=== PATIENT | male | born 1970 | race Caucasian/White ===

== ENCOUNTER 2016-08-12 21:08 | Observation (INO) | payer BC ==
[~2016-08-12] VITALS: Ht 182.9 cm; Wt 87.6 kg
[2016-08-12 21:49] LABS: HEMOGLOBIN 17.6 gm/dl (14.0-17.5); RED BLOOD COUNT 5.69 M/UL (4.20-5.50); WHITE BLOOD COUNT 10.9 K/UL (4.5-11.0)
[2016-08-12 22:07] LABS: BUN/CREATININE RATIO 15 (0-10)
[2016-08-13 03:57] LABS: HEMOGLOBIN 17.1 gm/dl (14.0-17.5); RED BLOOD COUNT 5.58 M/UL (4.20-5.50); WHITE BLOOD COUNT 9.5 K/UL (4.5-11.0)
[2016-08-13 04:15] LABS: BUN/CREATININE RATIO 19 (0-10)
[2016-08-13] MEDS ORDERED: BAYER CHEWABLE81 MG PO (19:13)
[2016-08-13] MEDS ORDERED: NITROSTAT 0.40.4 MG SL (19:15)
[2016-08-13] MEDS ORDERED: TOPROL XL25 MG PO (19:15)
[2016-08-13] MEDS ORDERED: IMDUR ER TAB 3030 MG PO (19:16)
== END 2016-08-13 19:42 | disposition home or self-care (01) ==
LOC: ER1 21:08 → ZEROF 23:15 → M/S 23:15
PROVIDERS: Family Medicine; ADMIT Internal Medicine
DX: I25.9 Chronic ischemic heart disease, unspecified (principal); I51.7 Cardiomegaly; I10 Essential (primary) hypertension; K21.9 Gastro-esophageal reflux disease without esophagitis; F17.210 Nicotine dependence, cigarettes, uncomplicated; Z82.49 Family history of ischemic heart disease and other diseases of the circulatory system; Z79.82 Long term (current) use of aspirin; Z79.899 Other long term (current) drug therapy
CPT/HCPCS: ECHO; 36415; 71010; 78452; 80048; 80053; 80061; 82550; 82553; 83874; 84443; 84484; 85025; 85379; 93005; 93017; 93306; 96372; 99285; A9502; G0378; J1650; J7030

== ENCOUNTER 2016-08-25 15:33 | Inpatient (IN) | payer BC ==
[~2016-08-25] VITALS: Ht 182.9 cm; Wt 90.7 kg
[~2016-08-25 15:33] MED LIST: BAYER CHEWABLE81 MG PO; IMDUR ER TAB 3030 MG PO; NITROSTAT 0.40.4 MG SL; TOPROL XL25 MG PO
[2016-08-25 16:57] LABS: HEMOGLOBIN 16.4 gm/dl (14.0-17.5); RED BLOOD COUNT 5.36 M/UL (4.20-5.50); WHITE BLOOD COUNT 12.1 K/UL (4.5-11.0)
[2016-08-25 17:18] LABS: BUN/CREATININE RATIO 16 (0-10)
[2016-08-26 06:16] LABS: HEMOGLOBIN 16.3 gm/dl (14.0-17.5); RED BLOOD COUNT 5.45 M/UL (4.20-5.50); WHITE BLOOD COUNT 14.3 K/UL (4.5-11.0)
[2016-08-26 06:45] LABS: BUN/CREATININE RATIO 14 (0-10)
[2016-08-27 03:40] LABS: HEMOGLOBIN 16.5 gm/dl (14.0-17.5); RED BLOOD COUNT 5.5 M/UL (4.20-5.50); WHITE BLOOD COUNT 11.3 K/UL (4.5-11.0)
[2016-08-27 04:09] LABS: BUN/CREATININE RATIO 17 (0-10)
[2016-08-27] MEDS ORDERED: LIPITOR TAB 1010 MG PO (12:52)
[2016-08-27] MEDS ORDERED: LISINOPRIL5 MG PO (12:52)
[2016-08-27] MEDS ORDERED: BRILINTA90 MG PO (12:55)
[2016-08-27] MEDS ORDERED: TYLENOL 325MG325 MG PO (12:56)
[2016-08-27] MEDS ORDERED: HABITROL 21 MG P1 EA TD (12:57)
== END 2016-08-27 12:20 | disposition home or self-care (01) | DRG 247 ==
LOC: ER1 15:33 → PROG CARE 17:55 → ZEROF 17:55 → PROG CARE 22:35
PROVIDERS: Internal Medicine Cardiovascular Disease; Physician Assistant; ADMIT Internal Medicine Infectious Disease
PROC: 027135Z Dilation of Coronary Artery, Two Arteries with Two Drug-eluting Intraluminal Devices, Percutaneous Approach (ICD-10-PCS; principal; 2016-08-26)
PROC: 02C03ZZ Extirpation of Matter from Coronary Artery, One Artery, Percutaneous Approach (ICD-10-PCS; 2016-08-26)
PROC: 4A023N7 Measurement of Cardiac Sampling and Pressure, Left Heart, Percutaneous Approach (ICD-10-PCS; 2016-08-26)
PROC: B2111ZZ Fluoroscopy of Multiple Coronary Arteries using Low Osmolar Contrast (ICD-10-PCS; 2016-08-26)
DX: I21.4 Non-ST elevation (NSTEMI) myocardial infarction (principal); I25.10 Atherosclerotic heart disease of native coronary artery without angina pectoris; I25.83 Coronary atherosclerosis due to lipid rich plaque; I10 Essential (primary) hypertension; E78.5 Hyperlipidemia, unspecified; D72.829 Elevated white blood cell count, unspecified; K21.9 Gastro-esophageal reflux disease without esophagitis; F17.200 Nicotine dependence, unspecified, uncomplicated; Z72.3 Lack of physical exercise; Z79.82 Long term (current) use of aspirin; Z79.899 Other long term (current) drug therapy; Z90.49 Acquired absence of other specified parts of digestive tract; Z98.890 Other specified postprocedural states
CPT/HCPCS: 36415; 71010; 80048; 80053; 80061; 82550; 82553; 83874; 84484; 85025; 85027; 85347; 85610; 85730; 93005; 96372; 99285; C1725; C1757; C1769; C1874; C1887; C9600; C9601; J0461; J0583; J1644; J1650; J2250; J3010; J7030; Q9963

== ENCOUNTER → 2020-09-01 | Outpatient (CLI) | payer OTHER ==
[~2020-09-01] MED LIST changes: +BREO ELLIPTA 21 EACH INH; +BRILINTA90 MG PO; +HABITROL 21 MG P1 EA TD; +IMDUR ER TAB 6060 MG PO; +LEVAQUIN750 MG PO; +LIPITOR TAB 1010 MG PO; +PRINIVIL20 MG PO; +PROAIR HFA8.5 GM INH; +TYLENOL 325MG325 MG PO; +VITAMIN B-121000 MCG PO; +VITAMIN D 11000 UNIT PO; +WELLBUTRIN SR150 M1 PO
== END ==
LOC: EXRD 08-28 13:30
DX: I73.9 Peripheral vascular disease, unspecified (principal)
CPT/HCPCS: 93922; 93925

== ENCOUNTER → 2020-09-22 | Outpatient (CLI) | payer OTHER | LOC: CT 07:44 | DX: I73.9 Peripheral vascular disease, unspecified (principal); I77.1 Stricture of artery; I74.5 Embolism and thrombosis of iliac artery | CPT/HCPCS: 36415; 75635; 82565; Q9967 ==

== ENCOUNTER 2020-10-12 13:13 | Emergency (ER) | payer SELFPAY ==
[~2020-10-12] VITALS: Ht 180.3 cm; Wt 94.8 kg
[2020-10-12 14:45] LABS: HEMOGLOBIN 17.5 gm/dl (14.0-17.5); RED BLOOD COUNT 5.63 M/UL (4.20-5.50); WHITE BLOOD COUNT 9.9 K/UL (4.5-11.0)
[2020-10-12 15:07] LABS: BUN/CREATININE RATIO 18 (0-10)
== END 2020-10-12 20:43 | disposition home or self-care (01) ==
LOC: ER1 13:13
PROVIDERS: Emergency Medicine
DX: M54.5 Low back pain (principal); I25.10 Atherosclerotic heart disease of native coronary artery without angina pectoris; I10 Essential (primary) hypertension; Z20.822 Contact with and (suspected) exposure to COVID-19; F17.200 Nicotine dependence, unspecified, uncomplicated
CPT/HCPCS: 75635; 80053; 82550; 82553; 83874; 84484; 85025; 85610; 85730; 93005; 96374; 96375; 96376; 99285; J1170; J1644; J2270; J2405; J7030; Q9967; U0002

== ENCOUNTER 2021-09-28 20:42 | Observation (INO) | payer SELFPAY ==
[~2021-09-28 20:42] MED LIST changes: +ASPIRIN EC81 MG PO; -BAYER CHEWABLE81 MG PO; -TOPROL XL25 MG PO; +TOPROL XL50 MG PO
[2021-09-28 21:24] LABS: HEMOGLOBIN 17.8 gm/dl (14.0-17.5); RED BLOOD COUNT 5.75 M/UL (4.20-5.50); WHITE BLOOD COUNT 11.8 K/UL (4.5-11.0)
[2021-09-28 21:51] LABS: BUN/CREATININE RATIO 17 (0-10)
== END 2021-09-29 10:29 | disposition left against medical advice (07) ==
LOC: ER1 20:42 → CDU 22:33
PROVIDERS: Physician Assistant Medical; ADMIT Internal Medicine
DX: R07.89 Other chest pain (principal); I25.10 Atherosclerotic heart disease of native coronary artery without angina pectoris; I73.9 Peripheral vascular disease, unspecified; I10 Essential (primary) hypertension; E78.5 Hyperlipidemia, unspecified; E66.9 Obesity, unspecified; F41.8 Other specified anxiety disorders; D75.1 Secondary polycythemia; R74.8 Abnormal levels of other serum enzymes; Z98.890 Other specified postprocedural states; Z72.0 Tobacco use; Z53.21 Procedure and treatment not carried out due to patient leaving prior to being seen by health care provider; Z95.5 Presence of coronary angioplasty implant and graft; Z68.30 Body mass index [BMI] 30.0-30.9, adult
CPT/HCPCS: 71045; 80053; 82550; 82553; 84484; 85025; 85610; 93005; G0378; J2270; J2405

== ENCOUNTER → 2021-11-04 | Outpatient (CLI) | payer OTHER ==
[~2021-11-04] MED LIST changes: +ASPIRIN CHEWABL81 MG PO; +ISOSORBIDE MONO30 MG PO; +LIPITOR40 MG PO; +TOPROL XL 25 MG25 MG PO; +ZESTRIL20 MG PO
== END ==
LOC: CATH 07:00
DX: I25.119 Atherosclerotic heart disease of native coronary artery with unspecified angina pectoris (principal); I10 Essential (primary) hypertension; E78.5 Hyperlipidemia, unspecified; Z79.82 Long term (current) use of aspirin; Z79.899 Other long term (current) drug therapy
CPT/HCPCS: 93005; 99152; C1769; C1887; C1894; J1644; J2250; J3010; Q9967